=== PATIENT | male | born 1955 | race Caucasian/White ===

== ENCOUNTER 2016-11-14 12:51 | Emergency (ER) | payer MEDICARE, OTHER | END 2016-11-14 13:20 | disposition left against medical advice (07) | LOC: ER1 12:51 | DX: Z53.8 Procedure and treatment not carried out for other reasons (principal) ==

== ENCOUNTER → 2021-01-03 | Outpatient (CLI) | payer MEDICARE, OTHER ==
[~2021-01-03] MED LIST: ALBUTEROL0.63 MG/3 INH; ASPIR-LOW81 MG PO; BENTYL 20MG TAB20 MG PO; COMPAZINE 10MG10 MG PO; CORTIZONE-1057 GM TOP; CYMBALTA 20 MG20 MG PO; DIFLUCAN 100 M100 MG PO; DRONABINOL2.5 MG PO; FEOSOL325 MG PO; GABAPENTIN800 MG PO; HUMIBID LA TAB600 MG PO; HYDROXYZINE PAM25 MG PO; IBUPROFEN600 MG PO; LEVOFLOXACIN750 MG PO; LIPITOR TAB 1010 MG PO; MICROZIDE12.5 MG PO; MOBIC15 MG PO; NEURONTIN 300300 MG PO; NICOTINE PATCH1 EAC1 TD; NORVASC10 MG PO; ONDANSETRON ODT4 MG PO; OXYCODONE HCL15 MG PO; OXYMORPHONE HCL10 M1 PO; PAIN RELIEF325 MG PO; PANTOPRAZOLE SO40 MG PO; PHENERGAN 25 MG25 M1 PO; PLAVIX 75 MG TA75 MG PO; PRINIVIL10 MG PO; VALACYCLOVIR500 MG PO; VALTREX 500 MG500 MG PO; VALTREX500 MG PO; VITAMIN B-122500 MCG PO; VITAMIN D21250 MCG PO; ZANAFLEX 4 MG TA4 MG PO; ZANTAC300 MG PO; ZOFRAN 4 MG TAB4 MG PO; ZYLOPRIM 300 M300 MG PO; ZYVOX600 MG PO
== END ==
LOC: KOH-I 10:21
DX: S32.009D Unspecified fracture of unspecified lumbar vertebra, subsequent encounter for fracture with routine healing (principal); M47.814 Spondylosis without myelopathy or radiculopathy, thoracic region; M51.34 Other intervertebral disc degeneration, thoracic region; M51.36 Other intervertebral disc degeneration, lumbar region
CPT/HCPCS: 72070; 72110